=== PATIENT | female | born 1990 | race Caucasian/White ===

== ENCOUNTER 2016-07-24 08:55 | Emergency (ER) | payer OTHER ==
[2016-07-24 09:08] VITALS: BP 119/80; PULSE 89; RESP 20; TEMP 99.2
[2016-07-24] MEDS ORDERED: IBUPROFEN 600 MG TAB PO STA (09:20)
--- NOTE | 2016-07-24 09:23 | ED ---
ENT HPI - General Chief complaint: ENT Stated complaint: sore throat Time Seen by Provider: 07/24/16 09:11 Source: patient Mode of arrival: ambulatory Limitations: no limitations - History of Present Illness Initial comments: 26-year-old female patient presents to emergency department today for complaints of sore throat and cough. Patient states symptoms started 2 days ago. She denies any nasal discharge or drainage. She denies any sputum production. Patient denies any known fevers. Patient states she has been taking Motrin for control of the pain. Patient states she does have painful swallowing with this. Patient denies any chest pain, back pain, shortness of breath, chills, abdominal pain, nausea, vomiting, constipation, diarrhea, dysuria, urinary frequency, or urinary urgency. She denies getting flu shot this season. - Related Data Previous Rx's Medication Instructions Recorded Amoxicillin 500 mg PO Q8H #30 capsule 07/24/16 Allergies Allergy/AdvReac Type Severity Reaction Status Date / Time No Known Allergies Allergy Verified 07/24/16 09:08 Review of Systems ROS Statement: Those systems with pertinent positive or pertinent negative responses have been documented in the HPI. ROS Other: All systems not noted in ROS Statement are negative. Past Medical History Past Medical History: No Reported History History of Any Multi-Drug Resistant Organisms: None Reported Past Surgical History: No Surgical Hx Reported Past Psychological History: Depression Smoking Status: Never smoker Past Alcohol Use History: None Reported Past Drug Use History: None Reported General Exam Limitations: no limitations General appearance: alert, in no apparent distress Head exam: Present: atraumatic, normocephalic, normal inspection Eye exam: Present: normal appearance, PERRL, EOMI. Absent: scleral icterus, conjunctival injection, periorbital swelling ENT exam: Present: normal exam, mucous membranes moist, TM's normal bilaterally. Absent: normal oropharynx (tonsillar hypertrophy, oropharyngeal erythema) Neck exam: Present: normal inspection. Absent: tenderness, meningismus, lymphadenopathy Respiratory exam: Present: normal lung sounds bilaterally. Absent: respiratory distress, wheezes, rales, rhonchi, stridor Cardiovascular Exam: Present: regular rate, normal rhythm, normal heart sounds. Absent: systolic murmur, diastolic murmur, rubs, gallop, clicks GI/Abdominal exam: Present: soft, normal bowel sounds. Absent: distended, tenderness, guarding, rebound, rigid Extremities exam: Present: normal inspection, full ROM, normal capillary refill. Absent: tenderness, pedal edema, joint swelling, calf tenderness Back exam: Present: normal inspection Neurological exam: Present: alert, oriented X3, CN II-XII intact Psychiatric exam: Present: normal affect, normal mood Skin exam: Present: warm, dry, intact, normal color. Absent: rash Course Vital Signs 07/24/16 09:07 Temperature 99.2 F Pulse Rate 89 Respiratory 20 Rate Blood Pressure 119/80 O2 Sat by Pulse 99 Oximetry Medical Decision Making - Medical Decision Making 26-year-old female patient presented to emergency department today for complaints of sore throat and intermittent cough. We did do a strep screen and patient was positive for this. Patient will be given a prescription for amoxicillin and discharged home with instructions to alternate Tylenol Motrin for pain and fever control. She is also educated and instructed to complete the entire prescription of antibiotics. Patient will follow-up with her primary care physician in one to 2 days. Patient will return for any worsening , new, or concerning symptoms. Patient verbalizes and agrees with this plan. - Lab Data Lab Results 07/24/16 Range/Units 09:25 Group A Strep Rapid Positive A (Negative) Disposition Clinical Impression: Strep pharyngitis Disposition: HOME SELF-CARE Condition: Stable Instructions: Strep Throat (ED) Additional Instructions: Complaint a prescription of antibiotics. Increase fluids. Follow-up with primary care physician in one to 2 days. Return for any new, worsening, or concerning symptoms. Prescriptions: Amoxicillin 500 mg PO Q8H #30 capsule Referrals: Kevon Cintron MD [Primary Care Provider] - 1-2 days Time of Disposition: 09:54
== END 2016-07-24 10:03 | disposition home or self-care (01) ==
LOC: EC 08:55
DX: J02.0 Streptococcal pharyngitis (principal)
CPT/HCPCS: 87430; 87502; 99283

== ENCOUNTER → 2016-10-19 | Outpatient (CLI) | payer OTHER ==
[2016-10-19 11:34] VITALS: BMI 53.4
== END | disposition home or self-care (01) ==
LOC: MNTWWP 11:07
PROVIDERS: ATTEND Family Medicine
DX: E66.01 Morbid (severe) obesity due to excess calories (principal)
CPT/HCPCS: 97802

== ENCOUNTER → 2017-02-17 | Outpatient (CLI) | payer OTHER ==
--- NOTE | 2017-02-17 16:50 | CONS ---
CONSULTATION DATE OF SERVICE: 02/17/2017 26-year-old lady has been evaluated in the sleep center for possible obstructive sleep apnea-hypopnea syndrome. HISTORY OF PRESENT ILLNESS SLEEP WAKE EVALUATION: SLEEP SCHEDULE: Patient usual sleep schedule from 9 p.m. to 7 am. FALLING ASLEEP: Sometimes she has problem with falling asleep. She has TV set in bedroom. DURING SLEEP: She snores, wakes up from sleep 2 times with nocturia. She use to eat at night. She may have sweating during the sleep. DURING THE DAY/SLEEP WAKE SCHEDULE: In the morning, she wakes up tired and has difficulties to pay attention. Worry about her sleep. She has problem with concentration, depression. [place] Sleepiness Scale is 2. PAST MEDICAL HISTORY: Positive for depression, back problems. PAST SURGICAL HISTORY: Some surgery on her teeth. MEDICATIONS: Ibuprofen, tramadol, Abilify. SOCIAL HISTORY: Negative for smoking or using alcohol. FAMILY HISTORY: Hypertension, hyperlipidemia, arthritis, sleep apnea, snoring, headaches, cancer, diabetes, thyroid problems. REVIEW OF SYSTEMS: Awakenings from sleep, episodes of depression. Some itching of the face related to acne. PHYSICAL EXAM: lady without distress BP 110/63, HR 80, RR 16, height 5 feet 1 inch, weight 285, BMI 53.8. Neck is 17 inches in circumference. Temperature 98.1. Oxygen saturation on room air 94%. Oropharynx extremely low position of soft palate. Mallampati 4. Restriction of nasal breathing. Some scars on the face secondary to removing acne by the patient by himself. Neck Supple, no JVD. Thyroid is not palpable. LUNGS Clear to percussion and to auscultation. Good air exchange. No wheezing or rhonchi. HEART S1, S2 regular. No murmurs, gallops, or rubs. ABDOMEN : Obese. Soft and nontender. Bowel sounds are present. No organomegaly appreciated. EXTREMITIES No clubbing or cyanosis. FOOD SAMPLER Awake, alert, and oriented X3. Cranial nerves 2 to 7 intact. There is no fasciculation or atrophy. noted. No focal deficits observed. IMPRESSION: 1. Snoring, awakenings from sleep with nocturia, extremely low position of soft palate, wide neck. Obstructive sleep apnea-hypopnea syndrome. 2. Obesity BMI 53.8. 3. Depression. 4. Back problems. 5. Some scoliosis. 6. Restriction of nasal breathing. 7. Acne on the face. PLAN: 1. Polysomnography for evaluation of patient's breathing during sleep. 2. CPAP/BiPAP titration if sleep study confirms obstructive sleep apnea-hypopnea syndrome. 3. Preferable position during sleep on the side. 4. No driving if patient feels any sleepiness. Patient is aware of civil and criminal liability for unsafe driving. 5. I will see patient for follow up visit to explain results of testing and following plan. Thank you very much for referring this patient for consultation. Sincerely, Garcia Parkinson MD, PhD, FAASM Diplomat of [employer] [place] [facility] [place] MMMALACHI / CUCAN: [id number] /
== END | disposition home or self-care (01) ==
LOC: SLEEP 14:06
PROVIDERS: ATTEND Internal Medicine
DX: G47.33 Obstructive sleep apnea (adult) (pediatric) (principal); E66.9 Obesity, unspecified; Z68.43 Body mass index [BMI] 50.0-59.9, adult; F32.9 Major depressive disorder, single episode, unspecified

== ENCOUNTER → 2017-11-07 | Outpatient (CLI) | payer OTHER | LOC: RADMRIMAIN 19:26 | PROVIDERS: ATTEND Orthopaedic Surgery Orthopaedic Surgery of the Spine | DX: Z53.9 Procedure and treatment not carried out, unspecified reason (principal) ==

== ENCOUNTER → 2018-09-27 | Outpatient (CLI) | payer OTHER ==
--- NOTE | 2018-09-27 16:21 | XR ---
Scoliosis survey HISTORY: Scoliosis, pain 7 views obtained, no comparisons There is an S-shaped thoracic lumbar scoliosis with rotatory component. The lumbar portion is convex left centered at approximately L2 and angle corresponding tog approximately 47 degrees. The dextrosco liosis in the lower thoracic spine is centered at approximately T8 and corresponds to an angle of todd roximately 64 degrees. Thoracic and lumbar vertebral bodies show preserved height. Bone mineralizatio n is maintained. There is multilevel spondylosis. IMPRESSION: Scoliosis as described.
== END | disposition home or self-care (01) ==
LOC: RADXRMAIN 15:30
PROVIDERS: ATTEND Neurological Surgery
DX: M41.85 Other forms of scoliosis, thoracolumbar region (principal)
CPT/HCPCS: 72082

== ENCOUNTER → 2022-12-15 | Outpatient (CLI) | payer OTHER ==
[2022-12-16 04:03] LABS: Alternaria alternata IgE <0.10 kU/L; Aspergillus fumagatus IgE <0.10 kU/L; Cat Epith & Dander IgE <0.10 kU/L; Dog Dander IgE <0.10 kU/L; Maple (Box Elder) IgE <0.10 kU/L; Oak IgE <0.10 kU/L
[2022-12-16 04:12] LABS: Birch IgE <0.10 kU/L; Cladosporian herbarum IgE <0.10 kU/L; Dermato. farinae IgE <0.10 kU/L; Elm IgE <0.10 kU/L; Ragweed,Common IgE <0.10 kU/L
[2022-12-16 11:57] LABS: Bermuda Grass IgE <0.10 kU/L (<0.10); Pecan IgE <0.10 kU/L (<0.10); Pecan IgE Class CLASS 0
[2022-12-16 11:58] LABS: Meadow Fescue IgE <0.10 kU/L (<0.10); Meadow Fescue IgE Class CLASS 0; Timothy Grass IgE <0.10 kU/L (<0.10); Timothy Grass IgE Class CLASS 0
[2022-12-16 11:59] LABS: Meadow Grs (KY blue) IgE <0.10 kU/L (<0.10); Meadow Grs (KY blue) IgE Class CLASS 0; Penicillium notatum IgE Class CLASS 0
[2022-12-16 12:00] LABS: Com. Pigweed IgE <0.10 kU/L (<0.10); Com. Pigweed IgE Class CLASS 0; Cottonwood IgE <0.10 kU/L (<0.10); English Plantain IgE Class CLASS 0; Goldenrod IgE <0.10 kU/L (<0.10); Goldenrod IgE Class CLASS 0; Lamb's Quarter IgE <0.10 kU/L (<0.10); Lamb's Quarter IgE Class CLASS 0; Mugwort IgE Class CLASS 0; Sheep Sorrel IgE <0.10 kU/L (<0.10); Sheep Sorrel IgE Class CLASS 0; Sycamore(Mpl.Lf) IgE <0.10 kU/L (<0.10); Sycamore(Mpl.Lf) IgE Class CLASS 0; Willow Tree IgE <0.10 kU/L (<0.10); Willow Tree IgE Class CLASS 0
[2022-12-16 12:02] LABS: Beech IgE <0.10 kU/L (<0.10); Beech IgE Class CLASS 0; Ragweed, Giant IgE <0.10 kU/L (<0.10); Ragweed, Giant IgE Class CLASS 0
== END | disposition home or self-care (01) ==
LOC: LABWHC1 13:58
PROVIDERS: ATTEND Internal Medicine
DX: J31.0 Chronic rhinitis (principal)
CPT/HCPCS: 36415; 86003